=== PATIENT | male | born 1955 | race Caucasian/White ===

== ENCOUNTER 2018-02-07 13:58 | Day surgery (SDC) | payer BC ==
[2018-02-05 09:16] LABS: BASOPHILS % (AUTO) 0.6 % (0-1); EOSINOPHILS # (AUTO) 0.2 X10'3 (0-0.9); EOSINOPHILS % (AUTO) 2.6 % (0-6); HEMOGLOBIN 15.4 g/dl (14.0-17.9); LYMPHOCYTES # (AUTO) 1.1 X10'3 (1.1-4.8); LYMPHOCYTES % (AUTO) 17.8 % (21-51); MEAN CORPUSCULAR HEMOGLOBIN 31.1 PG (27.0-31.0); MEAN CORPUSCULAR HGB CONC 34.3 % (33.0-36.5); MEAN CORPUSCULAR VOLUME 90.6 FL (78-98); MEAN PLATELET VOLUME 9.4 FL (7.4-10.4); MONOCYTES # (AUTO) 0.4 X10'3 (0-0.9); MONOCYTES % (AUTO) 6.9 % (2-12); NEUTROPHILS # (AUTO) 4.5 X10'3 (1.8-7.7); NEUTROPHILS % (AUTO) 72.1 % (42-75); PLATELET COUNT 168 X10'3 (140-440); RED BLOOD COUNT 4.97 X10'6 (4.70-6.10); RED CELL DISTRIBUTION WIDTH 16.4 % (11.5-14.5); WHITE BLOOD COUNT 6.2 X10'3 (4.5-11.0)
[2018-02-05 09:23] LABS: ALBUMIN 3.8 G/DL (3.4-5.0); ANION GAP 6 (8-16); BLOOD UREA NITROGEN 31 MG/DL (7-18); BUN/CREATININE RATIO 18.2 (5.4-32.0); CALCIUM 8.9 MG/DL (8.5-10.1); CHLORIDE 105 MMOL/L (99-107); GLUCOSE 104 MG/DL (70-104); POTASSIUM 4.4 MMOL/L (3.5-5.1); SODIUM 143 MMOL/L (135-145); TOTAL CARBON DIOXIDE 31.7 MMOL/L (24-32); eGFR 41 ML/MIN
[2018-02-05 09:25] LABS: INR 1.1 INR; PARTIAL THROMBOPLASTIN TIME 27 SECONDS (22-32); PROTHROMBIN TIME 11.2 SECONDS (9.0-12.0)
[2018-02-07] VITALS (11 sets, daily range): BP systolic 135–167; BP diastolic 81–98
[~2018-02-07] VITALS: Ht 180.3 cm; Wt 90.0 kg
[~2018-02-07 13:58] MED LIST: ASPI-1265 PO; ATOR40TA PO; CALC0.253 PO; CARV6.253 PO; COL100C PO; FURO-150 PO; HYDR-3972 PO; LISI2.5T2 PO; POTA10TA36 PO; SYN0.088T PO; TAMS0.4C32 PO
[2018-02-07] MEDS ORDERED: normal saline 1000ml 1,000 ML IV SCH ×2 (14:25→16:00)
[2018-02-07] MEDS ORDERED: AMIO200T57 PO (15:03)
[2018-02-07] MEDS ORDERED: FISH12002 PO (15:03)
[2018-02-07] MEDS ORDERED: MULT-1142 PO (15:03)
[2018-02-07] MEDS ORDERED: CALC-8 PO (15:03)
[2018-02-07] MEDS ORDERED: LOPE-155 (15:03)
[2018-02-07] MEDS ORDERED: LEVO200T PO (15:03)
[2018-02-07] MEDS ORDERED: APIX5TAB3 PO (15:03)
[2018-02-07] MEDS ORDERED: MIDAZolam 5mg/ml 2ml vial IV ONE (16:00)
[2018-02-07] MEDS ORDERED: fentaNYL/PF 50MCG/1 ML 2ML syringe IV ONE (16:00)
== END 2018-02-07 18:40 | disposition home or self-care (01) ==
LOC: SSTAY O 13:58
PROVIDERS: ATTEND Internal Medicine Interventional Cardiology
DX: I48.3 Typical atrial flutter (principal); I48.91 Unspecified atrial fibrillation; E83.51 Hypocalcemia; I65.23 Occlusion and stenosis of bilateral carotid arteries; I34.1 Nonrheumatic mitral (valve) prolapse; F32.9 Major depressive disorder, single episode, unspecified; I82.91 Chronic embolism and thrombosis of unspecified vein; E78.5 Hyperlipidemia, unspecified; K21.9 Gastro-esophageal reflux disease without esophagitis; E03.9 Hypothyroidism, unspecified; F41.9 Anxiety disorder, unspecified; I11.0 Hypertensive heart disease with heart failure; I50.21 Acute systolic (congestive) heart failure; Z95.2 Presence of prosthetic heart valve; Z87.891 Personal history of nicotine dependence; Z90.89 Acquired absence of other organs; Z72.89 Other problems related to lifestyle; Z98.52 Vasectomy status; Z79.01 Long term (current) use of anticoagulants; Z79.899 Other long term (current) drug therapy; Z98.890 Other specified postprocedural states
CPT/HCPCS: 36415; 80048; 85025; 85610; 85730; 92960; 93005; J2250; J3010; J7030; A4620